=== PATIENT | female | born 1940 ===

== ENCOUNTER 2018-08-23 13:22 | Inpatient (IN) | payer MEDICARE ==
[2018-08-23] MEDS ORDERED: Morphine 4 MG/ML VIAL ONE (13:49)
[2018-08-23 14:02] LABS: #Basophils 0.1 thou/uL (0.0-0.2); #Lymphocytes 1.1 thou/uL (1.20-3.40); #Monocytes 0.5 thou/uL (0.11-0.59); #Neutrophils 13.2 thou/uL (1.40-6.50); %Basophils 0.5 % (0.0-1.0); %Eosinophils 0.2 % (0.0-10.0); %Lymphocytes 7.3 % (21.0-51.0); %Monocytes 3.2 % (0.0-10.0); %Neutrophils 88.8 % (42.0-75.0); Hemoglobin 14.3 g/dL (12.0-16.0); Mean Corpuscular HGB CONC 32.7 g/dL (32.0-36.0); Mean Corpuscular Hemoglobin 30.8 pg (27.0-31.0); Mean Corpuscular Volume 94.1 fL (78.0-98.0); Mean Platelet Volume 6.8 fL (7.4-10.4); Platelet Count 256 thou/uL (130-400); RBC Distribution Width 11.6 % (11.5-14.5); Red Blood Cell (RBC) Count 4.66 mill/uL (4.20-5.40); White Blood Cell (WBC) Count 14.9 thou/uL (4.8-10.8)
[2018-08-23 14:05] LABS: Bilirubin Negative (Negative); Blood, Urine Negative (Negative); Clarity CLEAR (Clear); Glucose, Urine (Dipstick) Negative (Negative); Leukocyte Negative (Negative); Nitrite Negative (Negative); Protein, Urine (Dipstick) Negative (Neg-Trace); Specific Gravity, Urine 1.011 (1.002-1.036); Urobilinogen 0.2 mg/dL (0.2-1.0)
[2018-08-23 14:08] LABS: PTT 35.5 SEC (22.9-36.1); Prothrombin Time 13.1 SEC (12.0-14.7)
--- NOTE | 2018-08-23 14:14 | RAD ---
FExam: Chest one view HISTORY:Preoperative assessment Comparison: 06/23/2008 FINDINGS: Lungs: Hyperinflated, and lucent, without consolidation Cardiac silhouette:Normal size Pulmonary vessels: Normal Pleural Spaces: Clear Pneumothorax: None Osseous abnormalities: None Metallic clips are seen at the right axilla. IMPRESSION: COPD.
--- NOTE | 2018-08-23 14:21 | RAD ---
FXR Hip Rt 2-3 View History: [Fall. Injury] Comparison: None. Findings: There is a subcapital right femoral neck fracture with foreshortening and varus angulation. The right obturator ring is intact. Impression: Subcapital right femoral neck fracture with foreshortening and varus angulation.
[2018-08-23 14:24] LABS: ALT (SGPT) 13 U/L (8-55); AST (SGOT) 23 U/L (5-34); Albumin 4.4 g/dL (3.4-4.8); Alkaline Phosphatase 85 U/L (40-150); Anion Gap 16 mmol/L (10-20); BUN (Urea Nitrogen) 10 mg/dL (9.8-20.1); Bilirubin, Total 0.6 mg/dL (0.2-1.2); Calc. Creatinine Clearance 0 mL/min (70-130); Calcium 9.4 mg/dL (7.8-10.44); Carbon Dioxide 20 mmol/L (23-31); Chloride 106 mmol/L (98-107); Estimated GFR-MDRD 70; Globulin 2.6 g/dL (2.4-3.5); Glucose 94 mg/dL (83-110); Potassium 3.8 mmol/L (3.5-5.1); Sodium 138 mmol/L (136-145)
[2018-08-23] MEDS ORDERED: CEFAZOLIN 2 GM in Premix Bag 1 BAG IVPB SCH (15:00)
--- NOTE | 2018-08-23 15:21 | CON ---
DATE OF CONSULTATION: 08/23/2018 CONSULTING PHYSICIAN: Dr. Kota Kirby. REASON FOR CONSULTATION: Right hip fracture. HISTORY OF PRESENT ILLNESS: This is an 78-year-old female, who presents to our emergency department by way of air helicopter from [place], [place]. The patient states that she had a ground level fall at home while in her backyard with her when she lost her balance. She lives in [place], [place]. She denies hitting her head or having any loss of consciousness. She reported right hip pain. Denied any other injuries. Workup was significant for right hip fracture, for which we have been consulted. Currently at bedside, the patient denies any numbness or tingling in the right lower extremity. She denies any history of previous orthopedic surgeries. She states the pain is worse with movement and relieved with rest. She denies any head injury or otherwise pain in other extremities. PAST MEDICAL HISTORY: Significant for atrial fibrillation, hypertension, hyperlipidemia, and anxiety. PAST SURGICAL HISTORY: Significant for mastectomy of the right breast. FAMILY HISTORY: Reviewed, noncontributory. SOCIAL HISTORY: The patient denies any use of tobacco, alcohol, or illicit drugs. She lives at home in [place], [place] with her . She is an independent walker. ALLERGIES: INCLUDE TRAMADOL, WHICH GIVES HER GI UPSET. REVIEW OF SYSTEMS: 10-point review of systems conducted and otherwise negative except for stated above. PHYSICAL EXAMINATION: VITAL SIGNS: Blood pressure 151/82, pulse is 70, respiratory rate 21, temperature 97.2, and O2 saturations of 97% on room air. GENERAL: The patient is awake and alert. She is in no apparent distress. She is pleasant and cooperative with exam findings today. Currently at bedside with her is her and [id number]. HEENT: Head is normocephalic and atraumatic. NECK: Supple. Trachea midline. LUNGS: Breathing nonlabored. EXTREMITIES: The right lower extremity was evaluated. It is noted to be flexed at the hip and the knee with a pillow support underneath the knee for position of comfort. The patient is able to wiggle her toes, and sensation intact distally. Capillary refill 3 seconds. There are no signs of trauma to the right lower extremity. No ecchymosis and no lesions to the skin. The patient is tender along the right hip region. Remainder of extremities evaluated and no other injuries are noted. RADIOGRAPHIC FINDINGS: Including two views of the right hip demonstrate a displaced femoral neck fracture. ASSESSMENT: Displaced femoral neck fracture from a ground level fall. PLAN: At this time, we have discussed treatment options with the patient and her family today. We would like to go forward with surgical fixation of her fracture, including a right hip hemiarthroplasty in order to restore function and promote an ambulatory lifestyle. Risks, benefits, and alternatives were discussed with the patient and her family at length today. These include, but are not limited to bleeding, infection, and neurovascular injury. They are amenable to the plan of care. The patient states that she did eat lunch earlier today. We would like to plan for surgery tomorrow afternoon. She will be n.p.o. after midnight. The patient will be admitted to the Trauma Services. All questions have been answered. Job ID: [id number]
[2018-08-23] MEDS ORDERED: Dextrose 5% in Water 1,000 ML IV PRN (16:40)
[2018-08-23] MEDS ORDERED: Ondansetron ODT 4 MG TAB PO PRN (16:40)
[2018-08-23] MEDS ORDERED: Ondansetron PF 4 MG/2 ML Vial IVP PRN (16:40)
[2018-08-23] MEDS ORDERED: hydrALAZINE 20 MG/ML VIAL SLOW IVP PRN (16:40)
[2018-08-23] MEDS ORDERED: Dextrose 50% Abboject 50 ML SYRINGE SLOW IVP PRN (16:40)
[2018-08-23] MEDS ORDERED: Morphine 2 MG/ML SYRINGE SLOW IVP PRN (16:40)
[2018-08-23] MEDS ORDERED: traMADol HCl 50 MG TAB PO PRN (16:50)
[2018-08-23] MEDS ORDERED: Ondansetron PF 4 MG/2 ML Vial ONE ×2 (17:11→18:23)
[2018-08-23 17:21] LABS: Magnesium 1.9 mg/dL (1.6-2.6)
[2018-08-23] MEDS ORDERED: Acetaminophen 1,000 MG in Premix Bag 1 BAG IVPB SCH (17:30)
--- NOTE | 2018-08-23 17:48 | HP ---
Attending: [place] CONSULTING PHYSICIAN: Orthopedics, Dr. Kirby. HISTORY OF PRESENT ILLNESS: This is an 78-year-old female, who presented to the emergency room via air medical transport from her home. The patient reports that she was outside working in her backyard when she just went down. The patient is unsure of why she fell. She does not recall tripping and does not recall losing her balance. Her states that the ground was uneven, but the patient does not think that is why she fell. The patient denies being weak, dizzy, chest pain, or having any palpitations prior to falling. The only complaint the patient had recently was allergy symptoms and sinus symptoms with a mild cough. The patient fell on her right side and had sudden right hip pain. The patient denies any numbness or tingling in the lower extremities. The patient denies any other injuries when she fell. The patient denies hitting her head. There was no loss of consciousness. The patient does have a small contusion to the right elbow. The patient with good range of motion and denies any pain. Trauma Service was asked to admit the patient as the patient sustained a right hip fracture and will need surgical intervention. PAST MEDICAL HISTORY: Atrial fibrillation, hypertension, hyperlipidemia, and anxiety. PAST SURGICAL HISTORY: 1. Right mastectomy. 2. Right foot surgery/tumor removal. 3. Partial hysterectomy. 4. Cataract surgery. 5. Bilateral carpal tunnel surgery. SOCIAL HISTORY: The patient denies tobacco use, states smoked several years ago in the 70s. Denies any alcohol use, denies any illicit drug use. The patient lives at her home in [place], [place] with her . The patient is an independent walker and still drives and gets around very well. ALLERGIES: THE PATIENT DENIES ALLERGIES TO ANY MEDICATIONS. REVIEW OF SYSTEMS: A 10-point review of systems is negative unless otherwise stated in the above HPI. PHYSICAL EXAMINATION: VITAL SIGNS: Blood pressure 164/86, pulse 79, SpO2 of 98% on room air, respirations 17, temperature 97.2. GENERAL: The patient is awake and alert, in no distress. The patient currently eating a cracker. The patient's family at bedside. The patient is pleasant and cooperative. HEENT: Head is normocephalic and atraumatic. NECK: Supple. Trachea midline. RESPIRATORY: Bilateral breath sounds. Clear to auscultation. There is no wheezing, rales, or rhonchi. No respiratory distress. CARDIOVASCULAR: Regular rate and rhythm, no murmur noted. No pedal edema. ABDOMEN: Soft, nontender, nondistended. Positive bowel sounds. EXTREMITIES: Right lower extremity flexed at the hip with a pillow under the knee for positioning and comfort. The patient able to wiggle her toes with good sensation distally. There is no obvious bruising or trauma to the right extremity. The patient with a right hip tenderness. Right upper arm elbow area with a very small contusion. No obvious injury or deformity. The patient denies pain. Positive for range of motion. Left upper and lower extremities unremarkable. NEURO: The patient is awake and alert, GCS 15, no focal deficits. LABORATORY DATA: WBC 14.9, RBC 4.66, hemoglobin 14.3, hematocrit 43.9, and platelet 256. PT 13.1, INR 1.0, 35.5 APTT. Sodium 138, potassium 3.8, chloride 106, BUN 10, creatinine 0.79, estimated GFR 70, glucose 94, calcium 9.4, AST 23, ALT 13, alkaline phos 85. UA unremarkable. DIAGNOSTICS: 12-lead EKG; normal sinus rhythm without ectopy. No ST-segment changes. Ventricular rate 66. Chest x-ray, impression, COPD. Hip x-ray, impression, subcapital right femoral neck fracture with foreshortening and varus angulation. IMPRESSION: 1. Status post ground level fall. 2. Right displaced femoral neck fracture. 3. Acute traumatic pain. PLAN: The patient will be admitted to the surgical Ortho floor. The patient will be placed n.p.o. after midnight and placed on maintenance IV fluids. The patient planned for OR in the morning with Dr. Kirby for repair of the right hip fracture. We will manage patient's pain preop and postop. We will place a PT/ OT consult. We will also screen the patient for inpatient rehab. We will also get a troponin. The patient was examined with Dr. Reynolds. Job ID: [id number] [facility]
[2018-08-23] MEDS ORDERED: traMADol HCl 50 MG TAB PO SCH (18:00)
[2018-08-23] MEDS ORDERED: Acetaminophen 500 MG TAB PO SCH (18:00)
[2018-08-23] MEDS ORDERED: Morphine 2 MG/ML SYRINGE ONE (18:15)
[2018-08-24 00:30] VITALS: BMI 21.5
[2018-08-24] MEDS: Acetaminophen 500 MG TAB PO SCH ×5 (00:50→23:27)
[2018-08-24] MEDS: Sodium Chloride 0.9% 1,000 ML IV SCH ×2 (01:06→12:05)
[2018-08-24] MEDS: Ibuprofen 600 MG TAB PO SCH ×4 (01:16→20:17)
[2018-08-24] MEDS: Senokot S 8.6-50 MG TAB PO SCH ×3 (01:16→20:17)
[2018-08-24] MEDS: Famotidine 20 MG TAB PO SCH ×3 (01:16→20:16)
[2018-08-24 06:04] LABS: #Eosinphils 0.1 thou/uL (0.0-0.7); #Lymphocytes 1.2 thou/uL (1.20-3.40); #Monocytes 0.5 thou/uL (0.11-0.59); #Neutrophils 5.5 thou/uL (1.40-6.50); %Basophils 0.4 % (0.0-1.0); %Eosinophils 0.9 % (0.0-10.0); %Lymphocytes 15.9 % (21.0-51.0); %Monocytes 7.4 % (0.0-10.0); %Neutrophils 75.4 % (42.0-75.0); Hemoglobin 12.7 g/dL (12.0-16.0); Mean Corpuscular Hemoglobin 30.9 pg (27.0-31.0); Mean Corpuscular Volume 93.4 fL (78.0-98.0); Mean Platelet Volume 7.4 fL (7.4-10.4); Platelet Count 184 thou/uL (130-400); RBC Distribution Width 11.6 % (11.5-14.5); White Blood Cell (WBC) Count 7.3 thou/uL (4.8-10.8)
[2018-08-24 06:14] LABS: ALT (SGPT) 12 U/L (8-55); AST (SGOT) 25 U/L (5-34); Albumin 3.7 g/dL (3.4-4.8); Alkaline Phosphatase 76 U/L (40-150); Anion Gap 12 mmol/L (10-20); BUN (Urea Nitrogen) 7 mg/dL (9.8-20.1); Bilirubin, Total 0.6 mg/dL (0.2-1.2); Calc. Creatinine Clearance 61 mL/min (70-130); Calcium 8.6 mg/dL (7.8-10.44); Carbon Dioxide 20 mmol/L (23-31); Chloride 109 mmol/L (98-107); Estimated GFR-MDRD 83; Globulin 2.5 g/dL (2.4-3.5); Glucose 90 mg/dL (83-110); Magnesium 2.3 mg/dL (1.6-2.6); Potassium 4.1 mmol/L (3.5-5.1); Protein, Total 6.2 g/dL (6.0-8.3); Sodium 137 mmol/L (136-145)
[2018-08-24 07:29] LABS: Phosphorus 2.9 mg/dL (2.3-4.7)
[2018-08-24] MEDS ORDERED: Prevnar 13-Val Conj/PF 0.5 ML SYRINGE IM ONE ×2 (09:00→11:00)
[2018-08-24] MEDS: Polyethylene Glycol 3350 17 GM Packet PO SCH (09:22)
[2018-08-24] MEDS ORDERED: Lidocaine 4% Topical Sol 50 ML BOT ONE (12:04)
[2018-08-24] MEDS ORDERED: Fentanyl 100 MCG/2 ML VIAL ONE (12:04)
[2018-08-24] MEDS ORDERED: ePHEDrine 50 MG/ML VIAL ONE (13:21)
[2018-08-24] MEDS ORDERED: Succinylcholine Chloride 20 MG/ML 10 ml SYRINGE FS ONE (13:21)
[2018-08-24] MEDS ORDERED: Dexamethasone 20 MG/5 ML VIAL ONE (13:21)
[2018-08-24] MEDS ORDERED: Lidocaine 1% PF 5 ML VIAL ONE (13:21)
[2018-08-24] MEDS ORDERED: PROPOFOL 200 MG/20 ML VIAL ONE (13:21)
[2018-08-24] MEDS ORDERED: Ondansetron PF 4 MG/2 ML Vial ONE (13:21)
[2018-08-24] MEDS ORDERED: CEFAZOLIN 2 GM in Premix Bag 1 BAG IVPB SCH (14:00)
--- NOTE | 2018-08-24 15:41 | RAD ---
RIGHT HIP 2 VIEWS: HISTORY: Fracture. COMPARISON: Radiographs of prior day. FINDINGS: Satisfactory appearance of right hip arthroplasty. Expected postoperative gas and edema. IMPRESSION: Satisfactory postoperative appearance. POS: C
--- NOTE | 2018-08-24 16:33 | PRG ---
DATE OF SERVICE: 08/24/2018 SUBJECTIVE: Ms. Srinivasan is an 78-year-old woman, who suffered a right hip fracture following a ground-level fall yesterday. She underwent right hip hemiarthroplasty today without incident. Currently, the patient is awake and alert. She reports adequate pain control. She denies any dyspnea, chest pain, or syncope. OBJECTIVE: VITAL SIGNS: Current vital signs include blood pressure 149/75, pulse is 79, respiratory rate is 16, temperature 97.5 degrees Fahrenheit, and oxygen saturation is 95% on room air. HEENT: Normocephalic and atraumatic. Pupils are equal, round, and reactive to light and accommodation. NECK: She has no jugular venous distention noted. HEART: Regular rate and rhythm. No murmurs or gallops auscultated. LUNGS: Clear to auscultation bilaterally. Breathing, regular and nonlabored. ABDOMEN: Soft, nontender, and nondistended. NEUROLOGIC: No focal deficits present. LABORATORY FINDINGS: Today includes a CBC with 7300 white blood cells, hemoglobin and hematocrit of 12.7 and 38.3 respectively, and platelet count is 184,000. Metabolic profile; sodium 137, potassium 4.1, chloride is 109, bicarb is 20, BUN is 7, creatinine is 0.68, and glucose is 90. Phosphorus is 2.9. Magnesium is 2.3. IMPRESSIONS: Postoperative day #0, status post right hip hemiarthroplasty. The patient is hemodynamically stable. PLAN: 1. Initiate physical and occupational therapy and increase activity as tolerated. 2. The patient will be evaluated by PM and R for possible inpatient rehabilitation post discharge. 3. Optimize blood pressure control. Above findings and plan discussed with the patient and large family at bedside. They indicated understanding information given. I have answered their questions. Job ID: [id number]
[2018-08-24] MEDS: CEFAZOLIN 2 GM in Premix Bag 1 BAG IVPB SCH (20:15)
[2018-08-24] MEDS: Lovastatin 20 MG TAB PO SCH (20:17)
[2018-08-24] MEDS: ALPRAZolam 0.5 MG TAB PO SCH (21:44)
--- NOTE | 2018-08-24 21:57 | OP ---
DATE OF PROCEDURE: 08/24/2018 PREOPERATIVE DIAGNOSIS: Right femoral neck fracture, displaced. POSTOPERATIVE DIAGNOSIS: Right femoral neck fracture, displaced. PROCEDURE PERFORMED: Right hip hemiarthroplasty. ANESTHESIA: General. COLORER MACHINE: Luci De Santiago PA-C. IMPLANTS: DePuy system was used with a size 4 [place] cemented stem, a 28 x 48 bipolar cup and a +5 head. The [place] simplex cement with antibiotic was used. ESTIMATED BLOOD LOSS: 250 mL. COMPLICATIONS: None. DRAINS: None. SPECIMENS: Femoral head discarded. OUTCOME: Stable hemiarthroplasty. INDICATIONS: The patient is an 78-year-old lady status post ground level fall sustaining a right displaced femoral neck fracture. After discussion with the patient including risks and benefits, we decided to proceed with hemiarthroplasty. Informed consent has been obtained. I believe all questions have been answered. Risks and benefits have been discussed. Risks include, but are not limited to bleeding, infection, nerve injury, DVT, PE, loss of limb or life. The patient does wish to proceed. DESCRIPTION OF PROCEDURE: The patient was brought to the operating room and a time-out performed followed by induction of general anesthesia. Next, the patient was positioned in the left lateral decubitus position on the OR table and a sterile prep and drape was performed of the right lower extremity. Next, a curvilinear incision was made centered over the greater trochanter. After skin was sharply incised, dissection was carried down through the subcutaneous fat to the level of the tensor fascia and fascia anny. This structure was incised in line with the skin incision and reflected anteriorly and posteriorly, revealing the underlying greater trochanter and the trochanteric bursa. The trochanteric bursa was swept off the short external rotators and then elevator was passed under the abductors further exposing the short external rotators. The piriformis, superior and inferior gemelli, and obturator interns were then released off the posterior aspect of the proximal femur, tagged and reflected posteriorly. At this point, the capsule could be visualized. A T-capsulotomy was performed and then the femoral head was removed using a corkscrew device. The femoral head was measured on the back table and was determined that a 48 mm cup would be of appropriate size. Next, palpation of lesser trochanter was performed an a level for a femoral neck cut was decided upon. The femoral neck was then cut with an oscillating saw with a rongeur used to remove some loose bits of bone. Next, a box chisel was used to further open up the proximal femoral canal. This was followed by a T-handle awl. A lateralizing reamer was then passed into the canal. Progressive T-handle awls were passed down the canal up to a size 4, which gave reasonably good fit and fill. This was followed by broaching starting in size 2, continued up to size 4, which gave good proximal fit and fill. Trial reduction was performed and a +5 head gave a bipolar hip that was quite stable. As such, the trial components were removed. The canal was thoroughly irrigated with normal saline and then cement was prepared. The canal was then filled with polymethyl methacrylate after a cement plug was placed in the canal. Next, the stem was introduced into the canal and held in place until the cement had fully cured. The final 28 x 48 bipolar cup with a +5 head was then inserted onto the stem and the hip reduced and found to have excellent stability. The wound again irrigated with pulse lavage and then wound closure performed. The joint capsule was reapproximated with #1 Vicryl as was the short external rotators. #1 Vicryl was then used for the tensor fascia and fascia anny followed by 0 Vicryl for Jarrod fascia, 2-0 Vicryl subcutaneously and priscilla for the skin. Xeroform gauze and tape dressing was applied to the thigh and then the patient was transferred to recovery room in stable condition. There were no complications. The patient tolerated the procedure well. Job ID: [id number]
[2018-08-25] MEDS: CEFAZOLIN 2 GM in Premix Bag 1 BAG IVPB SCH ×2 (04:10→11:15)
[2018-08-25 05:55] LABS: #Lymphocytes 0.6 thou/uL (1.20-3.40); #Monocytes 0.5 thou/uL (0.11-0.59); #Neutrophils 9.3 thou/uL (1.40-6.50); %Basophils 0.1 % (0.0-1.0); %Eosinophils 0.1 % (0.0-10.0); %Lymphocytes 5.6 % (21.0-51.0); %Monocytes 4.5 % (0.0-10.0); %Neutrophils 89.6 % (42.0-75.0); Hemoglobin 10.4 g/dL (12.0-16.0); Mean Corpuscular HGB CONC 33.5 g/dL (32.0-36.0); Mean Corpuscular Hemoglobin 31.8 pg (27.0-31.0); Mean Corpuscular Volume 94.9 fL (78.0-98.0); Mean Platelet Volume 7.3 fL (7.4-10.4); Platelet Count 188 thou/uL (130-400); RBC Distribution Width 11.5 % (11.5-14.5); Red Blood Cell (RBC) Count 3.27 mill/uL (4.20-5.40); White Blood Cell (WBC) Count 10.4 thou/uL (4.8-10.8)
[2018-08-25] MEDS: Ibuprofen 600 MG TAB PO SCH ×3 (05:59→21:24)
[2018-08-25] MEDS: Acetaminophen 500 MG TAB PO SCH ×4 (06:00→23:27)
[2018-08-25 06:10] LABS: Anion Gap 12 mmol/L (10-20); BUN (Urea Nitrogen) 11 mg/dL (9.8-20.1); Calc. Creatinine Clearance 52 mL/min (70-130); Calcium 8.6 mg/dL (7.8-10.44); Carbon Dioxide 22 mmol/L (23-31); Chloride 108 mmol/L (98-107); Estimated GFR-MDRD 69; Glucose 154 mg/dL (83-110); Magnesium 1.9 mg/dL (1.6-2.6); Phosphorus 2.8 mg/dL (2.3-4.7); Potassium 3.8 mmol/L (3.5-5.1); Sodium 138 mmol/L (136-145)
[2018-08-25] MEDS ORDERED: Potassium Phosphate 30 MMOL in Sodium Chloride 0.9% 500 ML IVPB SCH (07:15)
[2018-08-25] MEDS: ALPRAZolam 0.5 MG TAB PO SCH ×2 (09:40→22:11)
[2018-08-25] MEDS: Aspirin 81 mg Enteric Coated Tablet PO SCH ×2 (09:40→21:23)
[2018-08-25] MEDS: Famotidine 20 MG TAB PO SCH ×2 (09:40→21:24)
[2018-08-25] MEDS: Polyethylene Glycol 3350 17 GM Packet PO SCH (09:40)
[2018-08-25] MEDS: Senokot S 8.6-50 MG TAB PO SCH ×2 (09:40→21:23)
--- NOTE | 2018-08-25 13:56 | PRG ---
DATE OF SERVICE: 08/25/2018 SUBJECTIVE: The patient was seen this morning sitting up in bed with family at bedside. Reported pain is well controlled on Tylenol only. The patient is allergic to tramadol and does not want to take ibuprofen due to a previous gastric ulcer. We did ask her to notify us if her pain was not tolerable and we would make further adjustments. She is tolerating a regular diet. Del Cid was discontinued this morning. She denies nausea, vomiting, or diarrhea. OBJECTIVE: VITAL SIGNS: Temperature 97.7, pulse 76, respirations 16, oxygen saturation 97% on room air, blood pressure 123/75. GENERAL: Well-appearing elderly female, sitting up in bed with no signs of acute distress. PULMONARY: Equal chest rise and fall. Clear breath sounds bilaterally. No signs of acute respiratory distress. CARDIAC: Regular rate and rhythm. No murmurs, gallops, or rubs. GI: Abdomen is soft, nontender, nondistended. EXTREMITIES: 2+ pulses in all extremities. No significant swelling noted. Gross motor and sensation intact in all extremities. OR dressing is clean, dry, and intact. LABORATORY FINDINGS: White count 10.4, hemoglobin 10.4, hematocrit 31.1, platelets 118. Sodium 138, potassium 3.8, chloride 101, carbon dioxide 22, BUN 0.8, glucose 154, phosphorus 2.8, magnesium 1.9. ASSESSMENT AND PLAN: The patient is working with Physical and Occupational Therapy and is pending placement at [facility]. We will replace potassium and phosphorus today. Continue to work with therapy. She is ready for discharge at this time. The patient was seen and examined by Dr. Reynolds and myself this morning during rounds. Job ID: [id number]
[2018-08-25] MEDS: Lovastatin 20 MG TAB PO SCH (22:11)
[2018-08-26 04:54] LABS: #Monocytes 0.6 thou/uL (0.11-0.59); #Neutrophils 8.7 thou/uL (1.40-6.50); %Eosinophils 0.1 % (0.0-10.0); %Monocytes 5.3 % (0.0-10.0); %Neutrophils 84.5 % (42.0-75.0); Mean Corpuscular HGB CONC 34.2 g/dL (32.0-36.0); Mean Corpuscular Hemoglobin 32.4 pg (27.0-31.0); Mean Corpuscular Volume 94.7 fL (78.0-98.0); Mean Platelet Volume 7.2 fL (7.4-10.4); Platelet Count 173 thou/uL (130-400); RBC Distribution Width 11.7 % (11.5-14.5); Red Blood Cell (RBC) Count 2.78 mill/uL (4.20-5.40); White Blood Cell (WBC) Count 10.3 thou/uL (4.8-10.8)
[2018-08-26 05:59] LABS: Anion Gap 11 mmol/L (10-20); BUN (Urea Nitrogen) 12 mg/dL (9.8-20.1); Calc. Creatinine Clearance 65 mL/min (70-130); Calcium 8.2 mg/dL (7.8-10.44); Carbon Dioxide 23 mmol/L (23-31); Chloride 109 mmol/L (98-107); Estimated GFR-MDRD 89; Glucose 106 mg/dL (83-110); Magnesium 1.8 mg/dL (1.6-2.6); Phosphorus 3.4 mg/dL (2.3-4.7); Potassium 4.1 mmol/L (3.5-5.1); Sodium 139 mmol/L (136-145)
[2018-08-26] MEDS: Acetaminophen 500 MG TAB PO SCH ×4 (06:48→23:00)
[2018-08-26] MEDS: Ibuprofen 600 MG TAB PO SCH (06:48)
[2018-08-26] MEDS ORDERED: Magnesium 2 GM/50 ML 2 GM in Premix Bag 1 BAG IVPB SCH (07:45)
[2018-08-26] MEDS: Senokot S 8.6-50 MG TAB PO SCH ×2 (09:54→19:39)
[2018-08-26] MEDS: Polyethylene Glycol 3350 17 GM Packet PO SCH (09:54)
[2018-08-26] MEDS: Famotidine 20 MG TAB PO SCH ×2 (09:55→19:38)
[2018-08-26] MEDS: ALPRAZolam 0.5 MG TAB PO SCH ×2 (09:55→19:38)
[2018-08-26] MEDS: Aspirin 81 mg Enteric Coated Tablet PO SCH ×2 (09:56→19:38)
--- NOTE | 2018-08-26 13:30 | PRG ---
DATE OF SERVICE: 08/26/2018 SUBJECTIVE: The patient was seen this morning sitting up in chair next to the bed. She reported her pain is well controlled, and she slept well overnight. She is tolerating regular diet. She is working on physical therapy and has not had a bowel movement yet. Denies nausea, vomiting, or diarrhea. OBJECTIVE: VITAL SIGNS: Temperature 97.8, pulse 71, respirations 12, oxygen saturation 97% on room air, blood pressure 119/78. GENERAL: Well-appearing elderly female, sitting up in bed with no signs of acute distress. PULMONARY: Equal chest rise and fall. Clear breath sounds bilaterally. No signs of acute respiratory distress. CARDIAC: Regular rate and rhythm. No murmurs, gallops, or rubs. GI: Abdomen is soft, nontender, nondistended. EXTREMITIES: 2+ pulses in all extremities. No significant swelling noted. Gross motor and sensation intact in all extremities. OR dressing is clean, dry, and intact. LABORATORY FINDINGS: White count 10.3, hemoglobin 9.0, hematocrit 26.3, platelets 173. Sodium 139, potassium 4.1, chloride 109, carbon dioxide 23, BUN 12, creatinine 0.69, glucose 106, phos 3.1, magnesium 1.8. DIAGNOSTIC FINDINGS: There are no new diagnostic findings to report. ASSESSMENT: 1. Status post mechanical fall from standing. 2. Right femoral neck fracture. 3. History of atrial fibrillation, hypertension, hyperlipidemia, and anxiety. PLAN: The patient will continue to receive supportive care as well as physical and occupational therapy. She is ready for discharge at this time. We will continue her regular diet and her pain regimen as previously prescribed. The patient was seen and examined by Dr. Reynolds with myself this morning during rounds. Job ID: [id number]
[2018-08-26] MEDS: Lovastatin 20 MG TAB PO SCH (19:39)
[2018-08-27] MEDS: Acetaminophen 500 MG TAB PO SCH ×3 (05:34→12:02)
[2018-08-27] MEDS: ALPRAZolam 0.5 MG TAB PO SCH (09:20)
[2018-08-27] MEDS: Polyethylene Glycol 3350 17 GM Packet PO SCH (09:20)
[2018-08-27] MEDS: Aspirin 81 mg Enteric Coated Tablet PO SCH (09:21)
[2018-08-27] MEDS: Senokot S 8.6-50 MG TAB PO SCH (09:21)
[2018-08-27] MEDS: Famotidine 20 MG TAB PO SCH (09:21)
[2018-08-27 16:14] VITALS: BP 127/57; TEMP 96.8
--- NOTE | 2018-08-28 03:09 | DIS ---
DATE OF ADMISSION: 08/23/2018 DATE OF DISCHARGE: 08/27/2018 ADMISSION DIAGNOSES: 1. Status post ground level fall. 2. Right displaced femoral neck fracture. 3. Acute traumatic pain. 4. History of atrial fibrillation, on chronic anticoagulation. 5. History of hypertension. 6. History of hyperlipidemia. 7. History of anxiety. Discharge diagnosis: As above SALES ASSOCIATE: Dr. Kirby, orthopedic surgery. PROCEDURES: Right hip hemiarthroplasty 08/24/2018. HOSPITAL COURSE: Lynette Srinivasan is an 78-year-old female who presented to [facility] status post fall at home. She was seen, evaluated, and found to have the above injuries. On 08/24/2018, she underwent operative intervention to those injuries. Postoperatively, she worked with PT and OT. She was tolerating a general diet and pain was controlled with p.o. analgesics. On 08/27/2018, patient was accepted for transfer to [facility]. She was deemed medically stable and cleared for discharge by the primary and consulting teams. DISCHARGE DISPOSITION: [facility]. DISCHARGE CONDITION: Good. PHYSICAL EXAMINATION: VITAL SIGNS: Temperature 96.5, pulse 67, respirations 16, O2 saturation 99% on room air, blood pressure 124/64. GENERAL: Elderly appearing female, in no acute distress, sitting in chair, out of bed. PULMONARY: Normal work of breathing. Symmetric rise. CARDIOVASCULAR: Regular rate and rhythm. GASTROINTESTINAL: Abdomen is soft, nontender, nondistended. MUSCULOSKELETAL: Moves all extremities x4. NEUROLOGIC: No focal deficit is noted. DISCHARGE INSTRUCTIONS: Discharge instructions were provided to the patient and accepting facility. She should keep her wounds clean and dry. She should maintain hip precautions. She should continue to work with Physical Therapy and Occupational therapy. DISCHARGE MEDICATIONS: Discharge medications as documented in the electronic medical record. A list of which was provided to the accepting facility. FOLLOWUP APPOINTMENTS: The patient should follow up with her primary care provider as needed post discharge. She should follow up with Orthopedic surgery in approximately 10 days. She does not need to follow up formally with Trauma Services, but may call our office with any questions. This is merely a summary of the patient's hospitalization. For more depth information, please see medical record in its entirety. Job ID: [id number] [facility]
== END 2018-08-27 16:45 | DRG 470 ==
LOC: ERS 13:22 → SURG B 16:40
PROVIDERS: ADMIT Surgery; ATTEND Surgery
PROC: 0SR90J9 Replacement of Right Hip Joint with Synthetic Substitute, Cemented, Open Approach (ICD-10-PCS; principal; 2018-08-24)
DX: S72.011A Unspecified intracapsular fracture of right femur, initial encounter for closed fracture (principal); W18.30XA Fall on same level, unspecified, initial encounter; Y92.017 Garden or yard in single-family (private) house as the place of occurrence of the external cause; E78.5 Hyperlipidemia, unspecified; I10 Essential (primary) hypertension; I48.91 Unspecified atrial fibrillation; F41.9 Anxiety disorder, unspecified; Z90.11 Acquired absence of right breast and nipple; Z88.5 Allergy status to narcotic agent; Z79.82 Long term (current) use of aspirin; Z90.710 Acquired absence of both cervix and uterus; Z87.891 Personal history of nicotine dependence
CPT/HCPCS: 36415; 51702; 71045; 80048; 80053; 81003; 83735; 84100; 84484; 85025; 85610; 85730; 86850; 86900; 86901; 90471; 90670; 93005; 96361; 96365; 96375; 96376; C1713; G0009; G0390; J0131; J1100; J2001; J2270; J2405; J2704; J3010; J3475; J3490; J7050

== ENCOUNTER 2023-06-04 18:44 | Inpatient (IN) | payer MEDICARE ==
[2023-06-04 22:05] VITALS: BMI 21.2
[2023-06-04] MEDS: Morphine 4 MG/ML VIAL SLOW IVP PRN (22:27)
[2023-06-04] MEDS: Sodium Chloride 0.9% 1,000 ML IV SCH (22:28)
[2023-06-05] MEDS: Morphine 4 MG/ML VIAL SLOW IVP PRN ×4 (02:47→21:20)
[2023-06-05] MEDS ORDERED: Rocuronium Bromide 10 MG/ML (10ML VIAL) ONE (07:53)
[2023-06-05] MEDS ORDERED: Lidocaine 1% PF 5 ML VIAL ONE ×2 (07:53→08:49)
[2023-06-05] MEDS ORDERED: fentaNYL PF 100 MCG/2 ML SYRINGE ONE (07:53)
[2023-06-05] MEDS ORDERED: ePHEDrine Sulfate 50 MG/10 ML VIAL ONE (07:53)
[2023-06-05] MEDS ORDERED: PROPOFOL 20 ML ONE ×2 (07:53→08:50)
[2023-06-05] MEDS ORDERED: CEFAZOLIN 2 GM in Sodium Chloride 0.9% 100 ML IVPB SCH (08:00)
[2023-06-05 08:38] LABS: Hematocrit 35.7 % (36.0-47.0); Hemoglobin 11.7 g/dL (12.0-16.0); Mean Corpuscular HGB CONC 32.8 g/dL (32.0-36.0); Mean Corpuscular Volume 94.4 fl (78.0-98.0); Mean Platelet Volume 8.7 fL (7.4-10.4); Platelet Count 275 10x3/uL (130-400); RBC Distribution Width 13.1 % (11.5-14.5); Red Blood Cell (RBC) Count 3.78 mill/uL (4.20-5.40); White Blood Cell (WBC) Count 6.4 10x3/uL (4.8-10.8)
[2023-06-05] MEDS ORDERED: Sodium Chloride 0.9% 100 ML ONE (09:00)
[2023-06-05] MEDS ORDERED: CEFAZOLIN 2 GM VIAL ONE (09:00)
[2023-06-05 09:04] LABS: Anion Gap 13 mmol/L (10-20); BUN (Urea Nitrogen) 9 mg/dL (9.8-20.1); Calc. Creatinine Clearance 51 mL/min (70-130); Calcium 8.5 mg/dL (7.8-10.44); Carbon Dioxide 20 mmol/L (23-31); Chloride 107 mmol/L (98-107); Estimated GFR 79; Glucose 81 mg/dL (83-110); Potassium 4.5 mmol/L (3.5-5.1); Sodium 135 mmol/L (136-145)
[2023-06-05] MEDS ORDERED: Ondansetron PF 4 MG/2 ML Vial ONE (09:33)
[2023-06-05] MEDS ORDERED: Glucagon 1 MG/ML KIT IM PRN (09:38)
[2023-06-05] MEDS ORDERED: Dextrose 5% in Water 1,000 ML IV PRN (09:38)
[2023-06-05] MEDS ORDERED: Ondansetron PF 4 MG/2 ML Vial IVP PRN (09:38)
[2023-06-05] MEDS ORDERED: Dextrose 50% Abboject 50 ML SYRINGE SLOW IVP PRN (09:38)
[2023-06-05] MEDS ORDERED: Dexamethasone 4 mg/ml Vial ONE (09:40)
[2023-06-05] MEDS ORDERED: Ondansetron HCl/PF 4 MG/2 ML Vial IVP PRN (10:02)
[2023-06-05] MEDS ORDERED: Promethazine HCl 25 MG/ML VIAL IM PRN (10:02)
[2023-06-05] MEDS ORDERED: Glycopyrrolate 0.2 MG/ML 5 ML SYRINGE ONE (10:24)
[2023-06-05] MEDS ORDERED: NEOSTIGMINE 3 MG/3 ML SYR 3 MG/3 ML SYRINGE ONE (10:24)
[2023-06-05] MEDS ORDERED: SUGAMMADEX SODIUM 200 MG/2 ML VIAL ONE (10:33)
[2023-06-05] MEDS ORDERED: Midazolam HCl 2 mg/2 ml Vial ONE (10:59)
[2023-06-05] MEDS: Sodium Chloride 0.9% 1,000 ML IV SCH ×2 (12:25→23:28)
[2023-06-05] MEDS: CEFAZOLIN 2 GM in Sodium Chloride 0.9% 100 ML IVPB SCH (18:33)
[2023-06-06] MEDS: CEFAZOLIN 2 GM in Sodium Chloride 0.9% 100 ML IVPB SCH (02:06)
[2023-06-06 05:48] LABS: #Monocytes 0.7 thou/uL (0.11-0.59); #Neutrophils 7.4 thou/uL (1.40-6.50); %Lymphocytes 10.4 % (21.0-51.0); %Neutrophils 81.3 % (42.0-75.0); Hematocrit 30.2 % (36.0-47.0); Hemoglobin 9.9 g/dL (12.0-16.0); Mean Corpuscular HGB CONC 32.8 g/dL (32.0-36.0); Mean Corpuscular Hemoglobin 31.3 pg (27.0-31.0); Mean Corpuscular Volume 95.6 fl (78.0-98.0); Platelet Count 226 10x3/uL (130-400); RBC Distribution Width 13.2 % (11.5-14.5); Red Blood Cell (RBC) Count 3.16 mill/uL (4.20-5.40); White Blood Cell (WBC) Count 9.1 10x3/uL (4.8-10.8)
[2023-06-06 06:31] LABS: Anion Gap 13 mmol/L (10-20); BUN (Urea Nitrogen) 10 mg/dL (9.8-20.1); Calc. Creatinine Clearance 52 mL/min (70-130); Calcium 7.8 mg/dL (7.8-10.44); Carbon Dioxide 18 mmol/L (23-31); Chloride 105 mmol/L (98-107); Estimated GFR 81; Glucose 119 mg/dL (83-110); Potassium 4.2 mmol/L (3.5-5.1); Sodium 132 mmol/L (136-145)
[2023-06-06] MEDS: Morphine 4 MG/ML VIAL SLOW IVP PRN (10:05)
[2023-06-06] MEDS ORDERED: ALPRAZolam 0.25 MG TAB PO PRN (10:44)
[2023-06-06] MEDS: Acetaminophen/Codeine 30-300mg Tablet PO PRN (15:53)
[2023-06-06] MEDS: Sodium Chloride 0.9% 1,000 ML IV SCH ×2 (19:25→23:33)
[2023-06-07] MEDS: Enoxaparin 40 MG (0.4 mL) SYRINGE SC SCH (08:21)
[2023-06-07] MEDS: dilTIAZem CD 120 MG CAP PO SCH (08:22)
[2023-06-07] MEDS: Losartan 25 MG TAB PO SCH (08:22)
[2023-06-07] MEDS: Acetaminophen 325 MG TAB PO PRN (08:27)
[2023-06-07] MEDS: Sodium Chloride 0.9% 1,000 ML IV SCH (12:12)
[2023-06-07] MEDS: Ondansetron ODT 4 MG TAB PO PRN (12:13)
[2023-06-07] MEDS: Acetaminophen/Codeine 30-300mg Tablet PO PRN (14:56)
[2023-06-08] MEDS: Sodium Chloride 0.9% 1,000 ML IV SCH ×2 (06:05→14:36)
[2023-06-08] MEDS: Acetaminophen 325 MG TAB PO PRN (06:06)
[2023-06-08] MEDS: Enoxaparin 40 MG (0.4 mL) SYRINGE SC SCH (09:44)
[2023-06-08] MEDS: Losartan 25 MG TAB PO SCH (09:44)
[2023-06-08] MEDS: dilTIAZem CD 120 MG CAP PO SCH (09:44)
[2023-06-08] MEDS: Morphine 4 MG/ML VIAL SLOW IVP PRN (17:11)
[2023-06-08] MEDS ORDERED: Polyethylene Glycol 3350 17 GM Packet PO PRN (17:17)
[2023-06-08] MEDS: Senokot S 8.6-50 MG TAB PO SCH (20:04)
[2023-06-08] MEDS: Cyclobenzaprine 10 MG TAB PO SCH (20:04)
[2023-06-09] MEDS: Sodium Chloride 0.9% 1,000 ML IV SCH (01:53)
[2023-06-09] MEDS: Morphine 4 MG/ML VIAL SLOW IVP PRN ×2 (03:30→23:35)
[2023-06-09] MEDS: dilTIAZem CD 120 MG CAP PO SCH (09:23)
[2023-06-09] MEDS: Losartan 25 MG TAB PO SCH (09:23)
[2023-06-09] MEDS: Senokot S 8.6-50 MG TAB PO SCH ×2 (09:23→21:39)
[2023-06-09] MEDS: Enoxaparin 40 MG (0.4 mL) SYRINGE SC SCH (09:24)
[2023-06-09] MEDS: Lactulose 20 GM (30 mL) UDCUP PO SCH ×2 (18:00→21:39)
[2023-06-09] MEDS: Acetaminophen 325 MG TAB PO PRN (18:05)
[2023-06-09] MEDS: Cyclobenzaprine 10 MG TAB PO SCH (21:38)
[2023-06-10] MEDS: Morphine 4 MG/ML VIAL SLOW IVP PRN (03:27)
[2023-06-10 04:51] LABS: #Eosinphils 0.3 thou/uL (0.0-0.7); #Monocytes 0.7 thou/uL (0.11-0.59); #Neutrophils 2.5 thou/uL (1.40-6.50); %Basophils 0.4 % (0.0-1.0); %Eosinophils 5.3 % (0.0-10.0); %Lymphocytes 31.8 % (21.0-51.0); %Monocytes 12.8 % (0.0-10.0); %Neutrophils 49.3 % (42.0-75.0); Hematocrit 28.1 % (36.0-47.0); Hemoglobin 9.2 g/dL (12.0-16.0); Mean Corpuscular HGB CONC 32.7 g/dL (32.0-36.0); Mean Corpuscular Hemoglobin 30.8 pg (27.0-31.0); Mean Platelet Volume 9.1 fL (7.4-10.4); Platelet Count 285 10x3/uL (130-400); RBC Distribution Width 13.2 % (11.5-14.5); Red Blood Cell (RBC) Count 2.99 mill/uL (4.20-5.40); White Blood Cell (WBC) Count 5.1 10x3/uL (4.8-10.8)
[2023-06-10 05:26] LABS: Anion Gap 11 mmol/L (10-20); BUN (Urea Nitrogen) 9 mg/dL (9.8-20.1); Calc. Creatinine Clearance 52 mL/min (70-130); Calcium 8.2 mg/dL (7.8-10.44); Carbon Dioxide 23 mmol/L (23-31); Chloride 103 mmol/L (98-107); Estimated GFR 82; Glucose 86 mg/dL (83-110); Potassium 3.3 mmol/L (3.5-5.1); Sodium 134 mmol/L (136-145)
[2023-06-10] MEDS ORDERED: Potassium Chloride 20 MEQ TAB PO SCH (07:30)
[2023-06-10] MEDS: dilTIAZem CD 120 MG CAP PO SCH (08:27)
[2023-06-10] MEDS: Senokot S 8.6-50 MG TAB PO SCH ×2 (08:27→20:05)
[2023-06-10] MEDS: Losartan 25 MG TAB PO SCH (08:27)
[2023-06-10] MEDS: Enoxaparin 40 MG (0.4 mL) SYRINGE SC SCH (08:29)
[2023-06-10] MEDS: Lactulose 20 GM (30 mL) UDCUP PO SCH ×2 (08:29→14:46)
[2023-06-10 11:31] LABS: Anion Gap 11 mmol/L (10-20); BUN (Urea Nitrogen) 9 mg/dL (9.8-20.1); Calc. Creatinine Clearance 53 mL/min (70-130); Calcium 8.2 mg/dL (7.8-10.44); Carbon Dioxide 25 mmol/L (23-31); Chloride 101 mmol/L (98-107); Estimated GFR 83; Glucose 93 mg/dL (83-110); Potassium 3.4 mmol/L (3.5-5.1); Sodium 134 mmol/L (136-145)
[2023-06-10] MEDS: Cyclobenzaprine 10 MG TAB PO SCH ×3 (12:30→20:04)
[2023-06-10] MEDS ORDERED: Potassium Bicarbonate/Cit Ac 20 MEQ TAB PO SCH (15:00)
[2023-06-10] MEDS: Ondansetron ODT 4 MG TAB PO PRN (17:47)
[2023-06-11] MEDS: Acetaminophen/Codeine 30-300mg Tablet PO PRN ×2 (00:15→22:10)
[2023-06-11] MEDS: Ondansetron ODT 4 MG TAB PO PRN (00:15)
[2023-06-11 06:43] LABS: #Eosinphils 0.3 thou/uL (0.0-0.7); #Monocytes 0.6 thou/uL (0.11-0.59); #Neutrophils 2.2 thou/uL (1.40-6.50); %Basophils 0.8 % (0.0-1.0); %Eosinophils 6.3 % (0.0-10.0); %Lymphocytes 34.3 % (21.0-51.0); %Monocytes 12.6 % (0.0-10.0); %Neutrophils 45.6 % (42.0-75.0); Hematocrit 26.3 % (36.0-47.0); Hemoglobin 8.6 g/dL (12.0-16.0); Mean Corpuscular HGB CONC 32.7 g/dL (32.0-36.0); Mean Corpuscular Hemoglobin 30.1 pg (27.0-31.0); Mean Platelet Volume 8.8 fL (7.4-10.4); Platelet Count 290 10x3/uL (130-400); RBC Distribution Width 13.2 % (11.5-14.5); Red Blood Cell (RBC) Count 2.86 mill/uL (4.20-5.40); White Blood Cell (WBC) Count 4.8 10x3/uL (4.8-10.8)
[2023-06-11 07:08] LABS: Anion Gap 11 mmol/L (10-20); BUN (Urea Nitrogen) 8 mg/dL (9.8-20.1); Calc. Creatinine Clearance 56 mL/min (70-130); Carbon Dioxide 22 mmol/L (23-31); Chloride 104 mmol/L (98-107); Estimated GFR 86; Glucose 84 mg/dL (83-110); Potassium 4.2 mmol/L (3.5-5.1); Sodium 133 mmol/L (136-145)
[2023-06-11] MEDS: dilTIAZem CD 120 MG CAP PO SCH (09:13)
[2023-06-11] MEDS: Senokot S 8.6-50 MG TAB PO SCH ×2 (09:13→20:33)
[2023-06-11] MEDS: Enoxaparin 40 MG (0.4 mL) SYRINGE SC SCH (09:13)
[2023-06-11] MEDS: Losartan 25 MG TAB PO SCH (09:14)
[2023-06-11] MEDS: Cyclobenzaprine 10 MG TAB PO SCH ×3 (09:14→20:32)
[2023-06-12] MEDS: Acetaminophen/Codeine 30-300mg Tablet PO PRN ×2 (03:44→12:38)
[2023-06-12] MEDS: Losartan 25 MG TAB PO SCH (09:24)
[2023-06-12] MEDS: dilTIAZem CD 120 MG CAP PO SCH (09:24)
[2023-06-12] MEDS: Enoxaparin 40 MG (0.4 mL) SYRINGE SC SCH (09:24)
[2023-06-12] MEDS: Cyclobenzaprine 10 MG TAB PO SCH ×2 (09:24→15:16)
[2023-06-12] MEDS: Senokot S 8.6-50 MG TAB PO SCH (09:26)
[2023-06-12 16:06] VITALS: BP 110/69; TEMP 98.1
== END 2023-06-12 17:26 | disposition home or self-care (01) | DRG 522 ==
LOC: SURG A 21:33
PROVIDERS: ADMIT Surgery; ATTEND Surgery
PROC: 0SRS0JA Replacement of Left Hip Joint, Femoral Surface with Synthetic Substitute, Uncemented, Open Approach (ICD-10-PCS; principal; 2023-06-05)
DX: S72.012A Unspecified intracapsular fracture of left femur, initial encounter for closed fracture (principal); I48.91 Unspecified atrial fibrillation; I10 Essential (primary) hypertension; E78.5 Hyperlipidemia, unspecified; Z96.641 Presence of right artificial hip joint; F41.9 Anxiety disorder, unspecified; W19.XXXA Unspecified fall, initial encounter; D64.9 Anemia, unspecified; E87.6 Hypokalemia; Z98.890 Other specified postprocedural states; Z90.710 Acquired absence of both cervix and uterus; Y92.89 Other specified places as the place of occurrence of the external cause
CPT/HCPCS: 36415; 72170; 80048; 85025; 85027; 86850; 86900; 86901; C1776; J1100; J1650; J2250; J2270; J2405; J2704; J3490; J7050; Q0162